=== PATIENT | female | born 2000 | race Caucasian/White ===

== ENCOUNTER 2018-12-28 00:15 | Outpatient (CLI) | payer BC | END 2018-12-28 01:39 | disposition home or self-care (01) | LOC: OBT 00:15 → L-D 00:20 → OBT 01:39 | DX: O26.893 Other specified pregnancy related conditions, third trimester (principal); Z3A.36 36 weeks gestation of pregnancy; R10.2 Pelvic and perineal pain | CPT/HCPCS: 76818 ==

== ENCOUNTER 2019-01-20 15:41 | Outpatient (CLI) | payer BC | END 2019-01-20 17:18 | disposition home or self-care (01) | LOC: OBT 15:41 → L-D 15:42 → OBT 17:18 | DX: O48.0 Post-term pregnancy (principal); Z3A.40 40 weeks gestation of pregnancy | CPT/HCPCS: 76815; 76818 ==

== ENCOUNTER 2019-01-21 10:56 | Inpatient (IN) | payer BC ==
[2019-01-21] MEDS ORDERED: METHYLERGONOVINE 0.2 MG INJ IM (12:00)
[2019-01-21] MEDS ORDERED: LIDOCAINE 1% (MPF) 30 ML INJ INJ (12:00)
[2019-01-21] MEDS ORDERED: BUTORPHANOL 2 MG INJ IV (12:00)
[2019-01-21] MEDS ORDERED: MISOPROSTOL 200 MCG TAB PR (12:00)
[2019-01-21] MEDS ORDERED: IBUPROFEN 600 MG TAB PO (12:00)
[2019-01-21] MEDS ORDERED: OXYTOCIN 30 UNITS/LR 500 ML IV ×2 (12:00)
[2019-01-21] MEDS ORDERED: CARBOPROST 250 MCG INJ IM (12:00)
[2019-01-21] MEDS: LACTATED RINGER'S 1,000 ML IV ×3 (12:08→23:41)
[2019-01-21 12:17] LABS: ADD MAN DIFF? NO
[2019-01-21 12:20] LABS: BASOPHILS % 0.5 % (0.0-2.0); EOSINOPHILS % 0.3 % (0.0-7.0); HEMATOCRIT 38.1 % (37.0-47.0); HEMOGLOBIN 12.3 g/dl (12.0-16.0); LYMPHOCYTES # 1.5 10^3/ul (0.8-2.9); LYMPHOCYTES % 16.8 % (15.0-51.0); MEAN CORPUSCULAR HGB CONC 32.3 g/dl (32.0-37.0); MEAN CORPUSCULAR VOLUME 89.9 fl (82.0-101.0); MEAN PLATELET VOLUME 11.2 fl (7.4-10.4); MONOCYTE # 0.6 10^3/ul (0.3-0.9); MONOCYTES % 7.2 % (0.0-11.0); NEUTROPHIL # 6.3 10^3/ul (1.6-7.5); NEUTROPHILS % 72.7 % (39.0-77.0); PLATELET COUNT 175 10^3/UL (140-415); RED BLOOD COUNT 4.24 10^6/ul (4.20-5.40); RED CELL DISTRIBUTION WIDTH 16.9 % (11.5-14.5)
[2019-01-21 12:20] LABS: WHITE BLOOD COUNT 8.7 10^3/ul (4.8-10.8)
[2019-01-21] MEDS: MISOPROSTOL 50 MCG CAPSULE PO ×3 (12:28→21:44)
[2019-01-21 12:44] LABS: INR 0.83; PROTIME 11.5 Sec (11.9-14.9); PT RATIO 0.9
[2019-01-21 12:45] LABS: PARTIAL THROMBOPLASTIN TIME 24.8 Sec (23.0-35.0)
[2019-01-21 20:42] LABS: HEPATITIS B SURFACE ANTIGEN NEGATIVE (NEGATIVE)
[2019-01-21 21:10] LABS: RAPID PLASMA REAGIN NONREACTIVE (NR)
[2019-01-22] MEDS: LACTATED RINGER'S 1,000 ML IV ×3 (03:46→19:03)
[2019-01-22] MEDS: MISOPROSTOL 50 MCG CAPSULE PO ×6 (08:36→21:00)
[2019-01-22] MEDS: OXYTOCIN 30 UNITS/LR 500 ML IV (20:52)
[2019-01-23] MEDS: LACTATED RINGER'S 1,000 ML IV ×4 (03:47→20:42)
[2019-01-23] MEDS ORDERED: LACTATED RINGER'S 1,000 ML IV (07:45)
[2019-01-23] MEDS ORDERED: IBUPROFEN 600 MG TAB PO (08:00)
[2019-01-23] MEDS ORDERED: MINERAL OIL LIGHT 10 ML VIAL TOP (08:00)
[2019-01-23] MEDS: OXYTOCIN 30 UNITS/LR 500 ML IV (10:05)
[2019-01-23] MEDS ORDERED: FENTAnyl 50 MCG/ML VIAL (20:23)
[2019-01-23] MEDS ORDERED: ROPIVACAINE 0.2% 100 ML (20:23)
[2019-01-23] MEDS ORDERED: DIPHENHYDRAMINE 50 MG INJ IV (20:30)
[2019-01-23] MEDS ORDERED: NALOXONE (0.4 MG/ML) INJ IV (20:30)
[2019-01-23] MEDS ORDERED: ONDANSETRON 4 MG INJ IV (20:30)
[2019-01-24] MEDS: LACTATED RINGER'S 1,000 ML IV ×4 (01:50→21:02)
[2019-01-24] MEDS: FENTAnyl 2MCG/ML-ROPIV 0.2% 100 ML BAG EPI (03:57)
[2019-01-24] MEDS: ROPIVACAINE 0.2% 100ML BAG EPI (04:17)
[2019-01-24] MEDS ORDERED: OXYTOCIN 30 UNITS/LR 500 ML BAG IV (07:00)
[2019-01-24] MEDS ORDERED: ONDANSETRON 4 MG INJ (07:00)
[2019-01-24] MEDS ORDERED: CITRIC ACID/NA CITRATE 30 ML CUP (07:51)
[2019-01-24] MEDS: CITRIC ACID/NA CITRATE 30 ML CUP PO (07:55)
[2019-01-24] MEDS: ONDANSETRON 4 MG INJ IV (07:55)
[2019-01-24] MEDS: CEFAZOLIN 2 GM/50 ML (PMX) 50 ML IVPB (09:00)
[2019-01-24] MEDS ORDERED: PHENYLephrine (100 MCG/ML) 10ML SYG (09:02)
[2019-01-24] MEDS ORDERED: KETOROLAC 30 MG INJ (09:03)
[2019-01-24] MEDS ORDERED: OXYTOCIN 10 UNIT INJ (09:03)
[2019-01-24] MEDS ORDERED: METOCLOPRAMIDE 10 MG INJ (09:03)
[2019-01-24] MEDS ORDERED: DEXAMETHASONE 4 MG/ML 1 ML INJ (09:03)
[2019-01-24] MEDS ORDERED: morphine SULFATE/PF (10 MG/10 ML) INJ (09:14)
[2019-01-24] MEDS: AZITHROMYCIN 500MG/NS (PMX) 250 ML IVPB (09:22)
[2019-01-24] MEDS: OXYTOCIN 30 UNITS/LR 500 ML IV ×3 (10:28→12:14)
[2019-01-24] MEDS ORDERED: CARBOPROST 250 MCG INJ IM (12:30)
[2019-01-24] MEDS ORDERED: METHYLERGONOVINE 0.2 MG INJ IM (12:30)
[2019-01-24] MEDS ORDERED: OXYTOCIN 30 UNITS/LR 500 ML IV (12:30)
[2019-01-24] MEDS ORDERED: MISOPROSTOL 200 MCG TAB PR (12:30)
[2019-01-24] MEDS ORDERED: OXYCODONE/ACETAMINOPHEN (5/325) TAB PO (12:30)
[2019-01-24] MEDS ORDERED: LANOLIN HPA 1 PKT TOP (12:30)
[2019-01-24] MEDS ORDERED: NALBUPHINE HCL (10 MG/1 ML) INJ IV (13:00)
[2019-01-24] MEDS ORDERED: morphine 2 MG INJ IV ×2 (13:00)
[2019-01-24] MEDS ORDERED: HYDROmorphONE 0.5 MG/0.5 ML SYG IV ×2 (13:00)
[2019-01-24] MEDS ORDERED: NALOXONE (0.4 MG/ML) INJ IV (13:00)
[2019-01-24] MEDS ORDERED: ACETAMINOPHEN 500 MG TAB PO (13:00)
[2019-01-24] MEDS ORDERED: DIPHENHYDRAMINE 50 MG INJ IV (13:00)
[2019-01-24] MEDS ORDERED: HYDROCODONE/APAP (5/325) TAB PO (13:00)
[2019-01-24] MEDS ORDERED: ONDANSETRON 4 MG INJ IV (13:00)
[2019-01-24] MEDS ORDERED: IBUPROFEN 800 MG TAB PO (14:00)
[2019-01-24] MEDS: SENNA/DOCUSATE NA (8.6MG/50MG) TAB PO (21:00)
[2019-01-25] MEDS: KETOROLAC 30 MG INJ IV (04:23)
[2019-01-25] MEDS: LACTATED RINGER'S 1,000 ML IV (06:57)
[2019-01-25 09:06] LABS: ADD MAN DIFF? NO
[2019-01-25] MEDS: SENNA/DOCUSATE NA (8.6MG/50MG) TAB PO ×2 (09:07→21:10)
[2019-01-25 09:08] LABS: WHITE BLOOD COUNT 10.1 10^3/ul (4.8-10.8)
[2019-01-25 09:08] LABS: BASOPHILS % 0.3 % (0.0-2.0); EOSINOPHILS % 0.2 % (0.0-7.0); HEMATOCRIT 25.3 % (37.0-47.0); HEMOGLOBIN 8.4 g/dl (12.0-16.0); LYMPHOCYTES # 1.4 10^3/ul (0.8-2.9); LYMPHOCYTES % 14.2 % (15.0-51.0); MEAN CORPUSCULAR HEMOGLOBIN 29.8 pg (29.0-33.0); MEAN CORPUSCULAR HGB CONC 33.2 g/dl (32.0-37.0); MEAN CORPUSCULAR VOLUME 89.7 fl (82.0-101.0); MEAN PLATELET VOLUME 10.6 fl (7.4-10.4); MONOCYTE # 0.9 10^3/ul (0.3-0.9); MONOCYTES % 8.6 % (0.0-11.0); NEUTROPHIL # 7.6 10^3/ul (1.6-7.5); NEUTROPHILS % 75.3 % (39.0-77.0); PLATELET COUNT 129 10^3/UL (140-415); RED BLOOD COUNT 2.82 10^6/ul (4.20-5.40); RED CELL DISTRIBUTION WIDTH 17.1 % (11.5-14.5)
[2019-01-25] MEDS: IBUPROFEN 800 MG TAB PO ×2 (13:52→21:44)
[2019-01-25] MEDS: OXYCODONE/ACETAMINOPHEN (5/325) TAB PO (15:26)
[2019-01-25] MEDS: FERROUS SULFATE (EC) 325 MG TAB PO (21:10)
[2019-01-26] MEDS ORDERED: OXYTOCIN 30 UNITS/LR 500 ML BAG IV (07:00)
[2019-01-26] MEDS: IBUPROFEN 800 MG TAB PO ×3 (07:29→22:00)
[2019-01-26 08:46] LABS: WHITE BLOOD COUNT 10.9 10^3/ul (4.8-10.8)
[2019-01-26 08:46] LABS: ADD MAN DIFF? NO; BASOPHILS % 0.4 % (0.0-2.0); EOSINOPHILS # 0.1 10^3/ul (0.0-0.5); EOSINOPHILS % 0.6 % (0.0-7.0); HEMATOCRIT 27.7 % (37.0-47.0); LYMPHOCYTES # 1.9 10^3/ul (0.8-2.9); LYMPHOCYTES % 17.6 % (15.0-51.0); MEAN CORPUSCULAR HEMOGLOBIN 29.7 pg (29.0-33.0); MEAN CORPUSCULAR HGB CONC 32.5 g/dl (32.0-37.0); MEAN CORPUSCULAR VOLUME 91.4 fl (82.0-101.0); MEAN PLATELET VOLUME 10.8 fl (7.4-10.4); MONOCYTE # 0.7 10^3/ul (0.3-0.9); MONOCYTES % 6.4 % (0.0-11.0); NEUTROPHIL # 7.9 10^3/ul (1.6-7.5); NEUTROPHILS % 72.4 % (39.0-77.0); PLATELET COUNT 167 10^3/UL (140-415); RED BLOOD COUNT 3.03 10^6/ul (4.20-5.40); RED CELL DISTRIBUTION WIDTH 17.3 % (11.5-14.5)
[2019-01-26] MEDS: SENNA/DOCUSATE NA (8.6MG/50MG) TAB PO ×2 (09:40→21:01)
[2019-01-26] MEDS: FERROUS SULFATE (EC) 325 MG TAB PO ×3 (09:40→21:01)
[2019-01-27] MEDS: IBUPROFEN 800 MG TAB PO (05:49)
[2019-01-27] MEDS: DIPHTH/TET/ACEL PERTUSS (ADULT) 0.5 ML VIAL IM* (07:44)
[2019-01-27] MEDS: FERROUS SULFATE (EC) 325 MG TAB PO (09:00)
[2019-01-27] MEDS: SENNA/DOCUSATE NA (8.6MG/50MG) TAB PO (09:00)
== END 2019-01-27 13:15 | disposition home or self-care (01) | DRG 788 ==
LOC: L-D 01-24 08:50 → PP1 01-24 11:53
PROVIDERS: Obstetrics & Gynecology
PROC: 10907ZC Drainage of Amniotic Fluid, Therapeutic from Products of Conception, Via Natural or Artificial Opening (ICD-10-PCS; 2019-01-24 09:15)
DX: O48.0 Post-term pregnancy (principal); O62.0 Primary inadequate contractions; Z3A.40 40 weeks gestation of pregnancy; Z37.0 Single live birth
CPT/HCPCS: 62319; 85025; 85610; 85730; 86592; 86850; 86900; 86901; 87340; 90686; 90715; 99464